=== PATIENT | female | born 1930 | race Caucasian/White ===

== ENCOUNTER → 2016-09-26 | Outpatient (CLI) | payer MEDICARE, OTHER | LOC: RAD 15:51 | PROVIDERS: ATTEND Internal Medicine Medical Oncology | DX: C18.9 Malignant neoplasm of colon, unspecified (principal) | CPT/HCPCS: 78815; A9552 ==

== ENCOUNTER → 2017-05-18 | Outpatient (CLI) | payer MEDICARE, OTHER ==
--- NOTE | 2017-05-18 11:51 | RADIOLOGY REPORT (SQ) ---
EXAM DESCRIPTION: CHEST PA/LATERAL COMPLETED DATE/TIME: 05/18/2017 11:20 am REASON FOR STUDY: ADENOCARCINOMA OF CECUM COMPARISON: None. EXAM PARAMETERS: NUMBER OF VIEWS: two views TECHNIQUE: Digital Frontal and Lateral radiographic views of the chest acquired. RADIATION DOSE: NA LIMITATIONS: none FINDINGS: LUNGS AND PLEURA: No opacities, masses or pneumothorax. No pleural effusion. MEDIASTINUM AND HILAR STRUCTURES: No masses or contour abnormalities. HEART AND VASCULAR STRUCTURES: Heart normal size. No evidence for failure. BONES: No acute findings. HARDWARE: Venous access catheter at the cavoatrial junction. OTHER: No other significant finding. IMPRESSION: NO SIGNIFICANT RADIOGRAPHIC FINDING IN THE CHEST. TECHNICAL DOCUMENTATION: JOB ID: [id number] [employer]- All Rights Reserved
== END ==
LOC: OD 11:09
PROVIDERS: ATTEND Internal Medicine Medical Oncology
DX: C18.0 Malignant neoplasm of cecum (principal)
CPT/HCPCS: 71020

== ENCOUNTER → 2017-08-16 | Outpatient (CLI) | payer MEDICARE, OTHER ==
--- NOTE | 2017-08-17 10:47 | RADIOLOGY REPORT (SQ) ---
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 RADIONUCLIDE AND DOSE: 10.0 mCi F18 FDG The route of agent administration: Intravenous FASTING BLOOD SUGAR: 77 mg/dl CONTRAST TYPE AND DOSE: No CT contrast given. TECHNIQUE: Blood glucose level was verified. Above dose of FDG was injected intravenously. 2-D seg mented attenuation correction images were obtained from the base of the skull to the midthighs. Nonc ontrast CT images were obtained for attenuation correction and fusion with emission images. CT image s were performed without oral or intravenous contrast and are not sensitive for parenchymal lesions. A series of overlapping emission PET images were obtained. Images reviewed and manipulated at [facility] work station by the radiologist. Images stored on PACS. LIMITATIONS: None. FINDINGS: HEAD AND NECK: No areas of abnormal metabolic activity in the soft tissues of the head and neck. CHEST: Subtle focal area of ground-glass appearance in the right lower lobe (CT axial series 3, image 89). Mean SUV value 2.96. No other pulmonary lesions. ABDOMEN AND PELVIS: There are now numerous focal areas of abnormal metabolic activity in the liver co nsistent with hepatic metastases. Somewhat difficult to visualize on CT with ill-defined areas of de creased attenuation. Lesions in the left lobe with mean SUV value is 10.97, 7.33, and 8.98. Lesions in the right lobe with mean SUV values 8.98 and 8.57. PROXIMAL LOWER EXTREMITIES: No areas of abnormal metabolic activity in the soft tissues of the lower extremities. BONES: No abnormal metabolic activity in the visualized skeleton. ADDITIONAL CT FINDINGS: Right hemicolectomy. Colonic diverticulosis. OTHER: No other significant findings. IMPRESSION: 1. THERE ARE NOW NUMEROUS AREAS OF ABNORMAL ACTIVITY IN THE LIVER CONSISTENT WITH HEPATIC METASTASES. 2. SUBTLE AREA OF VAGUE GROUND-GLASS OPACITY IN THE RIGHT LOWER LOBE WITH MEAN SUV VALUE 2.96. THIS IS NONSPECIFIC AND COULD REPRESENT A FOCAL AREA OF PNEUMONITIS ALTHOUGH EARLY METASTATIC INVOLVEMENT COULD BE ANOTHER POSSIBILITY. 3. NO OTHER AREAS OF ABNORMAL ACTIVITY ON PET IMAGING. NO OTHER SIGNIFICANT CT FINDINGS. TECHNICAL DOCUMENTATION: JOB ID: [id number] [facility]- All Rights Reserved Reading location - IP/workstation name: [facility]
== END ==
LOC: RAD 16:43
PROVIDERS: ATTEND Internal Medicine Medical Oncology
DX: C18.0 Malignant neoplasm of cecum (principal); C78.7 Secondary malignant neoplasm of liver and intrahepatic bile duct
CPT/HCPCS: 78815; A9552

== ENCOUNTER 2017-11-13 22:12 | Emergency (ER) | payer MEDICARE, OTHER ==
--- NOTE | 2017-11-13 22:42 | ER Document Report ---
ED General - General Chief Complaint: Abdominal Pain Stated Complaint: ABDOMINAL PAIN Time Seen by Provider: 11/13/17 22:25 TRAVEL OUTSIDE OF THE [place] IN LAST 30 DAYS: No - HPI Notes: Patient is an 87-year-old female with a history of liver and colon cancer who presents to the ED complaining of lower abdominal cramping that has been intermittent with difficulty having bowel movements 2 days. Pt states that her pain is currently 'not bad' and is only mild at this time. Patient states that tonight her pain started worsening with the cramps and she had one episode of vomiting that was watery with reported "food chunks." Patient states that she did have chemo treatment this week. Patient states that she is otherwise eating and drinking without any difficulties. She is still urinating normally. Her pains do not radiate. Patient states that she has not been taking her pain medications lately. She does report that she has had issues like this last year due to constipation when she was doing chemo at that time. Denies any drug allergies. No other concerns or complaints at this time. Denies any headache, fever, neck pain, URI, sore throat, chest pain, palpitations, syncope , cough, shortness of breath, wheeze, dyspnea, diarrhea, urinary retention, dysuria, hematuria, back pain, loss of control of bowel or bladder, numbness/ tingling, saddle anesthesia, muscle paralysis/weakness, or rash. Past Medical History - Social History Smoking Status: Never Smoker Family History: Reviewed & Not Pertinent Review of Systems - Review of Systems -: Yes All other systems reviewed and negative Physical Exam - Notes Notes: PHYSICAL EXAMINATION: GENERAL: Well-appearing, well-nourished and in no acute distress. A&Ox4. Answers questions appropriately. Appears comfortable and in no discomfort. HEAD: Atraumatic, normocephalic. EYES: Pupils equal round and reactive to light, extraocular movements intact, sclera anicteric, conjunctiva are normal. ENT: Nares patent and without discharge. oropharynx clear without exudates. No tonsilar hypertrophy or erythema. Moist mucous membranes. NECK: Normal range of motion, supple without lymphadenopathy LUNGS: Breath sounds clear to auscultation bilaterally and equal. No wheezes rales or rhonchi. HEART: Regular rate and rhythm without murmurs, rubs, gallops. ABDOMEN: Soft, nontender, nondistended abdomen. No guarding, no rebound. No masses appreciated. Normal bowel sounds present. No CVA tenderness bilaterally. no rigidity. Rectal: (accompanied by female nurse). Stool is brown and soft. Stool noted in the rectal area as well, without obvious impaction. Extremities: No cyanosis, clubbing, or edema b/l. Peripheral pulses 2+. Capillary refill less than 3 seconds. NEUROLOGICAL: Normal speech, normal gait. PSYCH: Normal mood, normal affect. SKIN: Warm, Dry, normal turgor, no rashes or lesions noted. Course - Re-evaluation Re-evalutation: 11/13/17 23:29 CBC, CMP, acute abdomen series was unremarkable for any acute pathology. Moderate stool was noted and there is no impaction on rectal exam. Soapsuds/mineral oil enema ordered. Pt has no new concerns or complaints. Pt has continued to have improvement in symptoms. 11/14/17 00:44 Patient is an afebrile, well-hydrated, 87-year-old female who presents to the ED with abdominal pain and constipation/fecal retention. Vitals are acceptable. PE is otherwise unremarkable. She has no significant tachycardia, tachypnea, or hypoxia. She is tolerating p.o. without difficulties and is nontoxic-appearing. CBC, CMP, acute abdomen series, urinalysis was unremarkable for any acute pathology. The abdominal series did note moderate stool throughout the colon. Enema was given which produced a very large bowel movement. Patient states that she feels much better and is now asymptomatic. No other labs or imaging warranted at this time based on H&P. Patient's abdomen is soft and nontender. Low suspicion/risk for acute appendicitis, bowel obstruction, acute cholecystitis, acute cholangitis, perforated diverticulitis, incarcerated hernia, pancreatitis, perforated ulcer, peritonitis , sepsis, or other systemic emergent condition at this time. Patient is aware that her condition can change from initial presentation and she needs to monitor symptoms closely and seek medical attention if any acute changes. Conservative measures otherwise for symptoms. Recheck with your PCM/oncologist in 2-3 days. Return to the ED with any worsening/concerning symptoms otherwise as reviewed in discharge. Patient/family in agreement. - Laboratory Result Diagrams: 11/13/17 22:20 11/13/17 22:20 Laboratory results interpreted by me: 11/13/17 11/13/17 11/13/17 22:20 22:20 23:20 RDW 14.1 H Monocytes % 2.8 L BUN 29 H Glucose 155 H Calcium 10.3 H AST 44 H Alkaline Phosphatase 163 H Urine Ketones TRACE H Urine Urobilinogen 2.0 H Urine Ascorbic Acid 40 H Discharge - Discharge Clinical Impression: Abdominal pain Qualifiers: Abdominal location: lower abdomen, unspecified Qualified Code(s): R10.30 - Lower abdominal pain, unspecified Constipation Qualifiers: Constipation type: unspecified constipation type Qualified Code(s): K59.00 - Constipation, unspecified Condition: Stable Disposition: HOME, SELF-CARE Additional Instructions: Maintain adequate water intake Increase fiber in diet Consider Miralax one capful daily to keep stools soft Zofran as needed tylenol if needed Monitor for any worsening symptoms Make sure you are staying hydrated enough to urinate and have normal BM's Recheck with your PCM in 2-3 days Consider consult with Gastroenterology for ongoing/worsening symptoms Return to the ED with any worsening symptoms and/or development of fever, headache, chest pain, palpitations, syncope, shortness of breath, trouble breathing, abdominal pain, n/v/d, blood in stool/urine, weakness, or other worsening symptoms that are concerning to you. Forms: Elevated Blood Pressure Referrals: REYNA SPAULDING MD [ACTIVE STAFF] - 11/16/17
[2017-11-13] MEDS ORDERED: NORMAL SALINE 1000 ML 1,000 ML IV ONE (22:49)
[2017-11-13] MEDS ORDERED: ONDANSETRON HCL INJ/PF 4 MG/2 ML SDV IV ONE (22:49)
[2017-11-13 22:52] LABS: ABSOLUTE LYMPHOCYTES (AUTO) 1.4 10^3/uL (0.5-4.7); ABSOLUTE MONOCYTES (AUTO) 0.1 10^3/uL (0.1-1.4); ABSOLUTE NEUT (AUTO) 3.2 10^3/uL (1.7-8.2); BASOPHILS % (AUTO) 0.5 % (0-2); HEMATOCRIT 40.7 % (36.0-47.0); HEMOGLOBIN 13.9 g/dL (12.0-15.5); LYMPHOCYTES % (AUTO) 29.2 % (13-45); MEAN CORPUSCULAR HEMOGLOBIN 31.6 pg (27.0-33.4); MEAN CORPUSCULAR HGB CONC 34.2 g/dL (32.0-36.0); MEAN CORPUSCULAR VOLUME 93 fl (80-97); MONOCYTES % (AUTO) 2.8 % (3-13); PLATELET COUNT 192 10^3/uL (150-450); RED CELL DISTRIBUTION WIDTH 14.1 % (11.5-14.0); SEGMENTED NEUTROPHILS % (AUTO) 66.5 % (42-78); TOTAL CELLS COUNTED % (AUTO) 100 %; WHITE BLOOD COUNT 4.8 10^3/uL (4.0-10.5)
[2017-11-13 22:55] LABS: ALANINE AMINOTRANSFERASE 34 U/L (9-52); ALBUMIN 4.6 g/dL (3.5-5.0); ALKALINE PHOSPHATASE 163 U/L (38-126); ASPARTATE AMINO TRANSFERASE 44 U/L (14-36); BILIRUBIN,DIRECT 0.4 mg/dL (0.0-0.4); BILIRUBIN,TOTAL 0.9 mg/dL (0.2-1.3); BLOOD UREA NITROGEN 29 mg/dL (7-20); CALCIUM 10.3 mg/dL (8.4-10.2); CARBON DIOXIDE 25 mmol/L (22-30); GLUCOSE 155 mg/dL (75-110); POTASSIUM 3.9 mmol/L (3.6-5.0); SODIUM 140.5 mmol/L (137-145); TOTAL PROTEIN 8.1 g/dL (6.3-8.2)
[2017-11-13 22:57] LABS: ANION GAP 14 (5-19); CHLORIDE 102 mmol/L (98-107)
--- NOTE | 2017-11-13 23:27 | RADIOLOGY REPORT (SQ) ---
EXAM DESCRIPTION: Acute abdominal series with single view chest CLINICAL HISTORY: lower abd cramping, constipated COMPARISON: None. FINDINGS: Single frontal view of the chest with upright and supine views of the abdomen. Right IJ Mediport. Atherosclerotic calcification and tortuosity of the thoracic aorta. Heart is not enlarged. No consolidation, pneumothorax, or pleural effusion. No free intraperineal air. Scattered air-filled loops of nondilated large and small bowel. Moderate amount of stool. Postoperative change of the right abdomen. Mild levoconvex scoliosis of the lumbar spine with degenerative changes. IMPRESSION: 1. No acute pulmonary process. Nonobstructive bowel gas pattern.
[2017-11-13] MEDS ORDERED: MINERAL OIL 30 ML UDCUP ONE (23:47)
[2017-11-13 23:49] LABS: APPEARANCE,URINE SLIGHTLY-CLOUDY; BILIRUBIN,URINE NEGATIVE (NEGATIVE); GLUCOSE, URINE NEGATIVE (NEGATIVE); KETONES,URINE TRACE mg/dL (NEGATIVE); LEUKOCYTE ESTERASE,URINE NEGATIVE (NEGATIVE); NITRITE,URINE NEGATIVE (NEGATIVE); PROTEIN,URINE NEGATIVE (NEGATIVE); URINE SPECIFIC GRAVITY 1.019
[2017-11-13 23:54] LABS: COLOR,URINE YELLOW
[2017-11-14] MEDS ORDERED: ONDANSETRON ODT 4 MG TAB (6 TAB/ER DISP) PO PRN (00:50)
[2017-11-14 01:14] VITALS: BP 149/62
== END 2017-11-14 01:16 | disposition home or self-care (01) ==
LOC: ER 22:12
DX: R10.30 Lower abdominal pain, unspecified (principal); K59.00 Constipation, unspecified; Z85.038 Personal history of other malignant neoplasm of large intestine; Z85.05 Personal history of malignant neoplasm of liver
CPT/HCPCS: 99284; 96361; 96374; 36415; 87086; 85025; 80053; 81001; 74022; J3490; J2405; J7030

== ENCOUNTER → 2018-01-10 | Outpatient (CLI) | payer MEDICARE, OTHER ==
--- NOTE | 2018-01-11 08:55 | RADIOLOGY REPORT (SQ) ---
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 RADIONUCLIDE AND DOSE: 10.0 mCi F18 FDG The route of agent administration: Intravenous FASTING BLOOD SUGAR: 74 mg/dl CONTRAST TYPE AND DOSE: No CT contrast given. TECHNIQUE: Blood glucose level was verified. Above dose of FDG was injected intravenously. 2-D seg mented attenuation correction images were obtained from the base of the skull to the midthighs. Nonc ontrast CT images were obtained for attenuation correction and fusion with emission images. CT image s were performed without oral or intravenous contrast and are not sensitive for parenchymal lesions. A series of overlapping emission PET images were obtained. Images reviewed and manipulated at [facility] work station by the radiologist. Images stored on PACS. LIMITATIONS: None. FINDINGS: HEAD AND NECK: No areas of abnormal metabolic activity in the soft tissues of the head and neck. CHEST: No areas of abnormal metabolic activity in the chest. ABDOMEN AND PELVIS: Previously seen metastatic lesions in the anterior liver have become larger and c oalescent. Indistinct on CT images but measuring approximately 3.5 by 6.5 cm. There is central decr eased activity and peripheral increased activity with mean SUV 6.86. Previous value is 7.3 and 10.97 . Lesions in the posterior right lobe also with decreased activity compared to the prior study. Cur rent mean SUV 3.38 with prior value 8.98. Lesion located more inferiorly with mean SUV 6.6, prior va lue 8.57. PROXIMAL LOWER EXTREMITIES: No areas of abnormal metabolic activity in the soft tissues of the lower extremities. BONES: There is a subtle sclerotic lesion in the posterior left 6th rib (axial image 65) with slight focal increased activity. Mean SUV 1.94. There is a round lesion in the inferior body of T10, measu ring 1.5 cm, with mean SUV 4.47. This is located immediately adjacent to the T10-T11 disc. ADDITIONAL CT FINDINGS: No additional significant findings on the noncontrast CT images. OTHER: No other significant findings. Background blood pool activity mean SUV 1.6. Background liver activity mean SUV 2.13. IMPRESSION: 1. METASTATIC LESIONS IN THE LIVER. LESIONS IN THE ANTERIOR LIVER HAVE NOW BECOME COALESCENT WITH CE NTRAL DECREASED ACTIVITY AND PERIPHERAL INCREASED ACTIVITY. MEAN SUV VALUE HAS DECREASED COMPARED TO THE PRIOR STUDY. OTHER HEPATIC LESIONS ALSO HAVE DECREASED SUV COMPARED TO THE PRIOR STUDY. 2. SUBTLE SCLEROTIC LESION IN THE POSTERIOR LEFT 6TH RIB WITH MINIMAL INCREASED ACTIVITY, BARELY ABOV E BASELINE. THIS COULD REPRESENT A VERY EARLY METASTASIS ALTHOUGH ACTIVITY SECONDARY TO PREVIOUS TRA JAMAR IS ALSO POSSIBLE. THERE IS A FOCAL AREA OF INCREASED ACTIVITY IN THE INFERIOR BODY OF T10. THIS IS IMMEDIATELY ADJACENT TO THE T10-T11 DISC AND COULD REPRESENT DEGENERATIVE CHANGE, POSSIBLY DEVELO PING SCHMORL'S NODE. METASTASIS CANNOT BE ENTIRELY EXCLUDED. IF CLINICALLY INDICATED, FOLLOW-UP MRI OF THE SPINE MAY BE CONSIDERED FOR FURTHER EVALUATION. TECHNICAL DOCUMENTATION: JOB ID: [id number] [employer]- All Rights Reserved Reading location - IP/workstation name: [email or web address]
== END ==
LOC: RAD 15:32
PROVIDERS: ATTEND Internal Medicine Medical Oncology
DX: C18.0 Malignant neoplasm of cecum (principal)
CPT/HCPCS: 78815; A9552

== ENCOUNTER 2018-03-06 11:02 | Emergency (ER) | payer MEDICARE, OTHER ==
--- NOTE | 2018-03-06 11:15 | ER Document Report ---
ED Medical Screen (RME) - General Chief Complaint: Constipation Stated Complaint: ABDOMINAL PAIN Time Seen by Provider: 03/06/18 11:14 Notes: 87-year-old female to the emergency department for evaluation of some crampy abdominal and rectal pain. Has a history of colon cancer. History of liver cancer. On chemotherapy. Has not had a bowel movement in several days. Feeling very uncomfortable. Denies any fever, chills, sweats. No rectal bleeding. No other major symptoms at this time. I have greeted and performed a rapid initial assessment of this patient. A comprehensive ED assessment and evaluation of the patient, analysis of test results and completion of the medical decision making process will be conducted by additional ED providers. TRAVEL OUTSIDE OF THE [place] IN LAST 30 DAYS: No - Related Data Allergies/Adverse Reactions: No Known Allergies Allergy (Unverified 03/06/18 11:04) Past Medical History Renal/ Medical History: Denies: Hx Peritoneal Dialysis Physical Exam - Vital signs Vitals: Temp Pulse Resp BP Pulse Ox 97.9 F 97 20 167/66 H 99 03/06/18 11:10 03/06/18 11:10 03/06/18 11:10 03/06/18 11:10 03/06/18 11:10 Course - Vital Signs Vital signs: Temp Pulse Resp BP Pulse Ox 97.9 F 97 20 167/66 H 99 03/06/18 11:10 03/06/18 11:10 03/06/18 11:10 03/06/18 11:10 03/06/18 11:10 Doctor's Discharge - Discharge Referrals: REYNA SPAULDING MD [Primary Care Provider] - Follow up as needed
--- NOTE | 2018-03-06 11:48 | RADIOLOGY REPORT (SQ) ---
EXAM DESCRIPTION: ACUTE ABDOMEN SERIES COMPLETED DATE/TIME: 03/06/2018 11:36 am REASON FOR STUDY: abd pain, constipation COMPARISON: PET-CT 01/10/2018 Three-way abdomen series 6118 NUMBER OF VIEWS: Three views. TECHNIQUE: Frontal chest, supine abdomen and upright abdomen radiographic images acquired. LIMITATIONS: None. FINDINGS: CHEST: No acute infiltrates. No pleural effusion. No pneumothorax. Cardiac silhouette s ize, acacia unremarkable. Right permanent central line tip superior vena cava. FREE AIR: None. No abnormal gas collections. BOWEL GAS PATTERN: Nonobstructive pattern. No dilated loops or air fluid levels. CALCIFICATIONS: No suspicious calcifications. HARDWARE: Surgical clips in the right abdomen post right hemicolectomy. SOFT TISSUES: No gross mass or suggestion of organomegaly. BONES: Degenerative convex leftward lumbar curvature OTHER: No other significant finding. IMPRESSION: No acute findings. Old surgical clips right abdomen post right hemicolectomy TECHNICAL DOCUMENTATION: JOB ID: [id number] [employer]- All Rights Reserved Reading location - IP/workstation name: [email or web address]
[2018-03-06] MEDS ORDERED: MAGNESIUM CITRATE 296 ML BOTTLE PO ONE (11:55)
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
[2018-03-06] MEDS ORDERED: MINERAL OIL 30 ML UDCUP PR ONE (11:57)
[2018-03-06 14:57] VITALS: BP 167/69
== END 2018-03-06 14:42 | disposition home or self-care (01) ==
LOC: ER 11:02
DX: K59.00 Constipation, unspecified (principal); I10 Essential (primary) hypertension
CPT/HCPCS: 99283; 74022; J3490 ×2

== ENCOUNTER → 2018-03-21 | Outpatient (CLI) | payer MEDICARE, OTHER ==
--- NOTE | 2018-03-22 12:42 | RADIOLOGY REPORT (SQ) ---
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 TECHNIQUE: Blood glucose level was verified. Above dose of FDG was injected intravenously. 2-D seg mented attenuation correction images were obtained from the base of the skull to the midthighs. Nonc ontrast CT images were obtained for attenuation correction and fusion with emission images. CT image s were performed without oral or intravenous contrast and are not sensitive for parenchymal lesions. A series of overlapping emission PET images were obtained. Images reviewed and manipulated at [facility] work station by the radiologist. Images stored on PACS. LIMITATIONS: None. FINDINGS: HEAD AND NECK: No areas of abnormal metabolic activity in the soft tissues of the head and neck. CHEST: No areas of abnormal metabolic activity in the chest. ABDOMEN AND PELVIS: Multiple liver lesions are as follows: Left lobe sub- diaphragmatic surface segment 8, 6.5 x 4 cm lesion on axial image 122 with SUV of 7.4 (was 6.5 x 3.5 cm 01/10/2018 with SUV of 7). Posterior right lobe liver segment 6, 3 x 2 cm lesion axial image 132 SUV 7.5 Caudate lobe liver 1 cm lesion SUV 3.3 Left lobe liver 1.5 cm lesion in segment 3, SUV 3.2 PROXIMAL LOWER EXTREMITIES: No areas of abnormal metabolic activity in the soft tissues of the lower extremities. BONES: Multiple hypermetabolic bony lesions are present, more prominent than on previous exam as foll ows: T4 transverse process SUV 4.3 T5 vertebral body SUV 5 Left posterior 6th rib SUV 3.2 (was SUV 1.9 on 01/10/2018 PET-CT) T10 vertebral body SUV 6.3 (was SUV 4.5 on 01/10/2018 PET-CT) T11 vertebral body SUV 6.2 L5 vertebral body SUV 3.8 Right sacrum SUV 2.[address] FINDINGS: Post right hemicolectomy. Right permanent central line tip superior vena cav a. Carotid bifurcation calcifications OTHER: Liver background activity 2.0 SUV. Blood pool background activity 1.4 SUV IMPRESSION: Progression of metastatic disease in the liver and bones TECHNICAL DOCUMENTATION: JOB ID: [id number] [employer]- All Rights Reserved Reading location - IP/workstation name: [email or web address]
== END ==
LOC: RAD 16:10
PROVIDERS: ATTEND Internal Medicine Medical Oncology
DX: C18.0 Malignant neoplasm of cecum (principal); C79.51 Secondary malignant neoplasm of bone; C78.7 Secondary malignant neoplasm of liver and intrahepatic bile duct
CPT/HCPCS: 78815; A9552

== ENCOUNTER → 2018-05-30 | Outpatient (CLI) | payer MEDICARE, OTHER ==
--- NOTE | 2018-05-31 08:46 | RADIOLOGY REPORT (SQ) ---
EXAM DESCRIPTION: PET CT SKULL/THIGH COMPLETED DATE/TIME: 05/30/2018 6:06 pm REASON FOR STUDY: COLON CANCER C18.9 MALIGNANT NEOPLASM OF COLON, UNSPECIFIED COMPARISON: Prior PET-CT exams 03/21/2018, 01/10/2018, 08/16/2017, 09/16/2016 RADIONUCLIDE AND DOSE: 9.9 mCi F18 FDG The route of agent administration: Intravenous FASTING BLOOD SUGAR: 75 mg/dl CONTRAST TYPE AND DOSE: No CT contrast given. TECHNIQUE: Blood glucose level was verified. Above dose of FDG was injected intravenously. 2-D seg mented attenuation correction images were obtained from the base of the skull to the midthighs. Nonc ontrast CT images were obtained for attenuation correction and fusion with emission images. CT image s were performed without oral or intravenous contrast and are not sensitive for parenchymal lesions. A series of overlapping emission PET images were obtained. Images reviewed and manipulated at [facility] work station by the radiologist. Images stored on PACS. LIMITATIONS: None. FINDINGS: HEAD AND NECK: No areas of abnormal metabolic activity in the soft tissues of the head and neck. CHEST: No areas of abnormal metabolic activity in the chest. ABDOMEN AND PELVIS: Liver lesions demonstrated a response to chemotherapy, with decrease in size, act ivity and conspicuity as follows: Left lobe sub- diaphragmatic surface lesions 6 x 3.5 cm, SUV 3.1 (was 6.5 x 4 cm with peripheral rim of activity 7.4 SUV on 03/21/2018) Caudate lobe lesion 1 cm in diameter SUV 2.8 (was 1 cm in size with SUV 3.3) Other lesions in the posterior right lobe liver and left lobe are no longer evident. PROXIMAL LOWER EXTREMITIES: No areas of abnormal metabolic activity in the soft tissues of the lower extremities. BONES: On today's study, diffuse increased marrow activity is present ranging from 3 to 5.4 SUV (was more sporadic throughout the skeleton 03/21/2018 with SUVs ranging up to 6.3). ADDITIONAL CT FINDINGS: Post right hemicolectomy. Right permanent line tip superior vena cava. Athe rosclerotic arterial vascular calcifications OTHER: Blood pool background 1.4 SUV. Liver background 2.0 SUV IMPRESSION: Decrease in size and peripheral rim activity of liver lesions compared to previous PET-C T 03/21/2018 Diffuse skeletal activity is present on today's study likely marrow response to chemotherapy TECHNICAL DOCUMENTATION: JOB ID: [id number] [employer]- All Rights Reserved Reading location - IP/workstation name: [email or web address]
== END ==
LOC: RAD 15:22
PROVIDERS: ATTEND Internal Medicine Medical Oncology
DX: C18.9 Malignant neoplasm of colon, unspecified (principal)
CPT/HCPCS: 78815; A9552

== ENCOUNTER → 2018-06-24 | Outpatient (CLI) | payer MEDICARE, OTHER ==
--- NOTE | 2018-06-24 12:32 | RADIOLOGY REPORT (SQ) ---
EXAM DESCRIPTION: ACUTE ABDOMEN SERIES COMPLETED DATE/TIME: 06/24/2018 11:08 am REASON FOR STUDY: ABD. 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 TECHNIQUE: PA chest, supine abdomen and upright/decubitus abdomen radiographic images acquired. LIMITATIONS: None. FINDINGS: CHEST: Lungs clear of infiltrates. FREE AIR: None. No abnormal gas collections. BOWEL GAS PATTERN: Few scattered small bowel loops with air fluid levels. No distended large or small bowel loops. CALCIFICATIONS: No suspicious calcifications. HARDWARE: Bowel anastomosis to right of midline. SOFT TISSUES: No gross mass or suggestion of organomegaly. BONES: No acute fracture. No worrisome bone lesions. OTHER: Unchanged position of right-sided port. IMPRESSION: NONSPECIFIC BOWEL GAS PATTERN WITHOUT EVIDENCE FOR OBSTRUCTION. TECHNICAL DOCUMENTATION: JOB ID: [id number] [employer]- All Rights Reserved Reading location - IP/workstation name: [email or web address]
== END ==
LOC: OD 10:29
PROVIDERS: ATTEND Internal Medicine Medical Oncology
DX: C18.0 Malignant neoplasm of cecum (principal)
CPT/HCPCS: 74022

== ENCOUNTER → 2018-08-22 | Outpatient (CLI) | payer MEDICARE, OTHER ==
--- NOTE | 2018-08-23 09:09 | RADIOLOGY REPORT (SQ) ---
EXAM DESCRIPTION: PET CT SKULL/THIGH COMPLETED DATE/TIME: 08/22/2018 8:09 pm REASON FOR STUDY: COLON CANCER C18.9 MALIGNANT NEOPLASM OF COLON, UNSPECIFIED COMPARISON: 05/30/2018 and 03/21/2018. RADIONUCLIDE AND DOSE: 10 mCi F18 FDG The route of agent administration: Intravenous FASTING BLOOD SUGAR: 87 mg/dl CONTRAST TYPE AND DOSE: No CT contrast given. TECHNIQUE: Blood glucose level was verified. Above dose of FDG was injected intravenously. 2-D seg mented attenuation correction images were obtained from the base of the skull to the midthighs. Nonc ontrast CT images were obtained for attenuation correction and fusion with emission images. CT image s were performed without oral or intravenous contrast and are not sensitive for parenchymal lesions. A series of overlapping emission PET images were obtained. Images reviewed and manipulated at [facility] work station by the radiologist. Images stored on PACS. LIMITATIONS: None. FINDINGS: HEAD AND NECK: No areas of abnormal metabolic activity in the soft tissues of the head and neck. CHEST: There is a new nodule in the anterior left upper lobe, measuring 7.5 mm. Mean SUV 3.6. ABDOMEN AND PELVIS: Previously seen lesion in the left lobe of the liver, subdiaphragmatic location, currently measures 3.1 x 6.2 cm with prior measurement 3.5 x 6 cm. Peripheral activity with mean SUV 5.87, previous value 3.1. Lesion in the caudate lobe measures 2.1 cm with prior measurement of 1 cm . Current mean SUV 5.07 with prior value 2.8. New lesion in the inferior right lobe of the liver me asures approximately 1.1 cm. Mean SUV 3.78. PROXIMAL LOWER EXTREMITIES: No areas of abnormal metabolic activity in the soft tissues of the lower extremities. BONES: Again seen is relatively diffuse activity throughout all of the bony structures. ADDITIONAL CT FINDINGS: Vascular port. Previous right hemicolectomy. No additional significant find ings on the noncontrast CT images. OTHER: Background liver activity mean SUV 1.75. Background blood pool activity mean SUV 1.35. No ot her significant findings. IMPRESSION: 1. NEW NODULE IN THE LEFT LUNG WITH INCREASED ACTIVITY, CONSISTENT WITH METASTASIS. 2. PROGRESSION OF DISEASE IN THE LIVER. PREVIOUSLY SEEN LESIONS IN THE SUBDIAPHRAGMATIC LEFT LOBE AN D IN THE CAUDATE LOBE HAVE INCREASED IN SIZE WITH INCREASED ACTIVITY. NEW HYPERMETABOLIC LESION IN T HE INFERIOR RIGHT LOBE OF THE LIVER. 3. DIFFUSE ACTIVITY THROUGHOUT THE SKELETAL STRUCTURES. OVERALL NO SIGNIFICANT CHANGE. PRESUMABLY R EPRESENTS MARROW RESPONSE ALTHOUGH CANNOT EXCLUDE SUPERIMPOSED METASTATIC LESIONS. TECHNICAL DOCUMENTATION: JOB ID: [id number] [employer]- All Rights Reserved Reading location - IP/workstation name: [email or web address]
== END ==
LOC: RAD 15:18
PROVIDERS: ATTEND Internal Medicine Medical Oncology
DX: C18.9 Malignant neoplasm of colon, unspecified (principal); C78.02 Secondary malignant neoplasm of left lung
CPT/HCPCS: 78815; A9552

== ENCOUNTER → 2018-09-21 | Outpatient (CLI) | payer MEDICARE, OTHER ==
--- NOTE | 2018-09-22 09:59 | RADIOLOGY REPORT (SQ) ---
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 TECHNIQUE: Blood glucose level was verified. Above dose of FDG was injected intravenously. 2-D seg mented attenuation correction images were obtained from the base of the skull to the midthighs. Nonc ontrast CT images were obtained for attenuation correction and fusion with emission images. CT image s were performed without oral or intravenous contrast and are not sensitive for parenchymal lesions. A series of overlapping emission PET images were obtained. Images reviewed and manipulated at [facility] work station by the radiologist. Images stored on PACS. LIMITATIONS: None. FINDINGS: HEAD AND NECK: No areas of abnormal metabolic activity in the soft tissues of the head and neck. CHEST: 1.3 cm nodule in the anterior aspect left upper lobe axial image 78 with SUV 9.1 (was 7.5 mm i n size with SUV 3.6 on 08/22/2018). ABDOMEN AND PELVIS: Progression of liver disease as follows: 8.5 x 4 cm liver mass left lobe sub- diaphragmatic surface axial image 111 with SUV 9.6 (was 6.2 cm g reatest diameter with SUV 5.9 on 08/22/2018). 3.5 x 2.7 cm caudate lobe liver lesion axial image 124 with SUV 6.5 (was 2.1 cm diameter with SUV 5 o n 08/22/2018) 2.9 x 1.9 cm lesion right lobe liver inferiorly axial image 41 with SUV of 6.4 (was 1.1 cm in diamete r with SUV 3.8 on 08/22/2018). PROXIMAL LOWER EXTREMITIES: No areas of abnormal metabolic activity in the soft tissues of the lower extremities. BONES: There are hypermetabolic bone lesions in T3, T4, T11, T12, L4, L5, S2, the right femoral head, and the right anterior acetabular wall. Sternum activity is also present, SUV 6.4. ADDITIONAL CT FINDINGS: Right permanent central line tip superior vena cava. Calcified carotid bifur cations. Right hemicolectomy OTHER: Blood pool background activity 1.7 SUV. Liver background activity 2.0 SUV IMPRESSION: Progression of metastatic disease as above TECHNICAL DOCUMENTATION: JOB ID: [id number] [employer]- All Rights Reserved Reading location - IP/workstation name: [email or web address]
== END ==
LOC: RAD 19:24
PROVIDERS: ATTEND Internal Medicine Medical Oncology
DX: C18.2 Malignant neoplasm of ascending colon (principal)
CPT/HCPCS: 78815; A9552